=== PATIENT | female | born 1965 | race Caucasian/White ===

== ENCOUNTER → 2016-08-07 | Outpatient (CLI) | payer BC ==
[2016-08-08 14:22] LABS: HEMATOCRIT 40.4 % (37.0-47.0); HEMOGLOBIN 12.9 g/dL (12.0-16.0); MEAN CORPUSCULAR HEMOGLOBIN 25.7 PG (27-31); MEAN CORPUSCULAR HGB CONC 31.9 g/dL (33-37); MEAN CORPUSCULAR VOLUME 80.5 FL (81-99); MEAN PLATELET VOLUME 10.7 FL (7.4-12.2); RED BLOOD COUNT 5.02 10^6/uL (4.20-5.40)
[2016-08-08 14:45] LABS: BAND NEUTROPHILS % 3 % (0-10); LYMPHOCYTES % (MANUAL) 37 % (10-50); NEUTROPHILS % (MANUAL) 52 % (50-80)
[2016-08-08 14:46] LABS: BASOPHILS % (MANUAL) 3 % (0-1); EOSINOPHILS % (MANUAL) 2 % (0-8); MONOCYTES % (MANUAL) 3 % (0-12); PLATELET MORPHOLOGY COMMENT NORMAL MORPHOLOGY (NORM); RBC MORPHOLOGY COMMENT NORMAL MORPHOLOGY (NORM); WBC MORPHOLOGY COMMENT SEE COMMENTS (NORM)
[2016-08-08 15:04] LABS: FERRITIN 15.6 ng/mL (12.00-336.70)
== END ==
LOC: LAB 14:48
PROVIDERS: ATTEND Physician Assistant Medical
DX: I10 Essential (primary) hypertension (principal); R53.83 Other fatigue
CPT/HCPCS: 36415; 82728; 84443; 85007

== ENCOUNTER → 2016-08-19 | Outpatient (CLI) | payer BC ==
[2016-08-19 14:22] LABS: HEMOGLOBIN 13.5 g/dL (12.0-16.0)
[2016-08-19 14:27] LABS: BASOPHILS # (AUTO) 0.08 10*3/UL; BASOPHILS % (AUTO) 0.5 % (0-1); EOSINOPHILS # (AUTO) 0.17 10*3/UL; EOSINOPHILS % (AUTO) 1.1 % (0-8); HEMATOCRIT 42.3 % (37.0-47.0); LYMPHOCYTES # (AUTO) 5.04 10*3/uL; MEAN CORPUSCULAR HEMOGLOBIN 25.6 PG (27-31); MEAN CORPUSCULAR HGB CONC 31.9 g/dL (33-37); MEAN CORPUSCULAR VOLUME 80.3 FL (81-99); MONOCYTES # (AUTO) 0.99 10*3/UL (0.3-0.8); MONOCYTES % (AUTO) 6.1 % (5-15); NEUTROPHILS # (AUTO) 9.79 10*3/UL; NEUTROPHILS % (AUTO) 60.7 % (50-80); RED BLOOD COUNT 5.27 10^6/uL (4.20-5.40)
[2016-08-19 14:55] LABS: PLATELET MORPHOLOGY COMMENT NORMAL MORPHOLOGY (NORM); RBC MORPHOLOGY COMMENT NORMAL MORPHOLOGY (NORM); WBC MORPHOLOGY COMMENT NORMAL MORPHOLOGY (NORM)
== END ==
LOC: LAB 08:12
PROVIDERS: ATTEND Physician Assistant Medical
DX: D72.829 Elevated white blood cell count, unspecified (principal)
CPT/HCPCS: 85025

== ENCOUNTER → 2016-08-27 | Outpatient (CLI) | payer BC ==
[2016-08-27 14:40] LABS: BASOPHILS # (AUTO) 0.07 10*3/UL; BASOPHILS % (AUTO) 0.3 % (0-1); EOSINOPHILS # (AUTO) 0.07 10*3/UL; EOSINOPHILS % (AUTO) 0.3 % (0-8); HEMATOCRIT 43.1 % (37.0-47.0); HEMOGLOBIN 13.7 g/dL (12.0-16.0); LYMPHOCYTES # (AUTO) 4.48 10*3/uL; MEAN CORPUSCULAR HEMOGLOBIN 25.5 PG (27-31); MEAN CORPUSCULAR HGB CONC 31.8 g/dL (33-37); MEAN CORPUSCULAR VOLUME 80.3 FL (81-99); MEAN PLATELET VOLUME 10.9 FL (7.4-12.2); MONOCYTES # (AUTO) 1.43 10*3/UL (0.3-0.8); NEUTROPHILS # (AUTO) 14.29 10*3/UL; NEUTROPHILS % (AUTO) 70.1 % (50-80); RED BLOOD COUNT 5.37 10^6/uL (4.20-5.40)
[2016-08-27 14:42] LABS: PLATELET MORPHOLOGY COMMENT NORMAL MORPHOLOGY (NORM); RBC MORPHOLOGY COMMENT NORMAL MORPHOLOGY (NORM); WBC MORPHOLOGY COMMENT NORMAL MORPHOLOGY (NORM)
== END ==
LOC: LAB 09:09
PROVIDERS: ATTEND Physician Assistant Medical
DX: D72.829 Elevated white blood cell count, unspecified (principal)
CPT/HCPCS: 85025

== ENCOUNTER → 2016-09-25 | Outpatient (CLI) | payer BC ==
--- NOTE | 2016-09-25 12:19 | DI ---
CT ABD W/WO CN AND PELVIS W/W0,09/25/2016 8:36 AM: Clinical History: Left upper quadrant pain Previous Exam: February 06, 2007 Findings: Multiple helically acquired CT images are obtained through the abdomen and pelvis both before and aft er the administration of 75 cc of Isovue 300. The lung bases are clear. There is a 1 cm calcification within the hepatic dome. The appendix is normal. The gallbladder and liver is unremarkable. The spleen is also unremarkable. The pancreas is unremarkable. Postsurgical changes are seen consiste nt with gastric bypass. There is no evidence of small bowel obstruction. There are multiple prominent mesenteric lymph nodes, the majority of these were seen back in 2006. Skeletal structures are unremarkable. There is no hydronephrosis nor nephrolithiasis. Impression: 1. No acute intra-abdominal pathology. 2. Moderate stool throughout the colon. 3. Few mesenteric lymph nodes could represent some underlying acute gastroenteritis.
== END ==
LOC: CT 08:28
PROVIDERS: ATTEND Physician Assistant Medical
DX: R10.12 Left upper quadrant pain (principal); D72.829 Elevated white blood cell count, unspecified
CPT/HCPCS: 74178

== ENCOUNTER 2016-10-11 08:15 | Day surgery (SDC) | payer BC ==
[~2016-10-11 08:15] MED LIST: LIDOCAINE 2% VISCOUS(20 MG/1 ML) - 15 ML UD CUP PO ONE; LIDOCAINE HCL/PF 2% (20 MG/ML) - 5 ML SYRINGE ONE; LIDOCAINE W/ SODIUM BICARB 0.5 ML SYR ONE; Lactated Ringers 1,000 ML PRIMARY IV ONE; MIDAZOLAM 5 MG/1 ML ONE; fentaNYL Inj 100 MCG/2 ML VIAL ONE
--- NOTE | 2016-10-11 09:58 | GEN.OPNOTE ---
EGD Operative Note Surgery Date: 10/11/16 Preoperative Diagnosis: Epigastric abdominal pain Postoperative Diagnosis: Epigastric abdominal pain Procedure: Esophagogastroduodenoscopy Surgeon: Dre Chairez MD Anesthesia Provider: Brayden Zarate CRNA Anesthesia Type: MAC Indications: Patient's been having some of sharp abdominal pain located in the epigastric region Findings: Esophagus: Olympus video EGD scope inserted in the posterior pharynx. Under direct visualization guided into the esophagus. Esophagus was totally normal. No masses ulcers or tumors. GE Junction : 30-40 cm from incisors Fundus : Patient is small gastric pouch which was totally within normal limits Body : Prepyloric : Small Intestine : Was able to guide the scope along ways into the small intestine there is no ulcers seen. Saw the blind end of the small intestine lines that is attached to the gastric pouch again no evidence of problems. There was no marginal ulcers detected at the anastomotic site A lubricated flexible upper endoscope was inserted and passed through the esophagus and stomach into the duodenum.
[2016-10-11 11:00] VITALS: RESP 16
[2016-10-11 11:04] VITALS: TEMP 97.5
== END 2016-10-11 10:30 | disposition home or self-care (01) ==
LOC: SDSC 08:15
PROVIDERS: ATTEND Surgery
DX: R10.13 Epigastric pain (principal)
CPT/HCPCS: 43235; J2704; J3010; J2001; J2250; J7120

== ENCOUNTER 2017-01-02 12:55 | Emergency (ER) | payer BC ==
[2017-01-02] MEDS ORDERED: HEPARIN 5000 UNIT/1 ML IV ONE (13:04)
[2017-01-02] MEDS ORDERED: NORMAL SALINE 10 ML SYRINGE FLUSH IVP PRN (13:04)
[2017-01-02] MEDS ORDERED: Sodium Chloride 0.9% 1,000 ML PRIMARY IV ONE (13:04)
[2017-01-02 13:22] LABS: BASOPHILS # (AUTO) 0.11 10*3/UL; BASOPHILS % (AUTO) 0.7 % (0-1); EOSINOPHILS # (AUTO) 0.22 10*3/UL; EOSINOPHILS % (AUTO) 1.3 % (0-8); HEMATOCRIT 38.2 % (37.0-47.0); LYMPHOCYTES # (AUTO) 7.34 10*3/uL; MEAN CORPUSCULAR HEMOGLOBIN 23.7 PG (27-31); MEAN CORPUSCULAR HGB CONC 31.4 g/dL (33-37); MEAN CORPUSCULAR VOLUME 75.5 FL (81-99); MEAN PLATELET VOLUME 9.6 FL (7.4-12.2); MONOCYTES # (AUTO) 1.15 10*3/UL (0.3-0.8); MONOCYTES % (AUTO) 6.9 % (5-15); NEUTROPHILS % (AUTO) 45.5 % (50-80); RED BLOOD COUNT 5.06 10^6/uL (4.20-5.40)
[2017-01-02 13:25] LABS: PLATELET MORPHOLOGY COMMENT NORMAL MORPHOLOGY (NORM); RBC MORPHOLOGY COMMENT NORMAL MORPHOLOGY (NORM); WBC MORPHOLOGY COMMENT NORMAL MORPHOLOGY (NORM)
--- NOTE | 2017-01-02 13:31 | PDOC ---
Chest Pain HPI - General Chief Complaint: Chest Pain Stated Complaint: CHEST PAIN Date Seen by Provider: 01/02/17 Time Seen by Provider: 12:55 Source: Patient Exam Limitations: POSITIVE: No limitations Treatment Prior to Arrival: REPORTS: None Nurse's Notes Reviewed & Considered: Yes - History of Present Illness Initial Comments: The patient is a 51-year-old female who arrives to the emergency department by private vehicle with complaints of chest pain and fatigue. She states that approximately 2 weeks ago while at work sitting down she had onset of mid lower chest pain that radiated through to her left back and down the insides of both of her arms. She states that this severe pain was associated with cold sweats, shortness of breath and nausea. She states that she did have some associated emesis. She states that this severe pain lasted for just less than an hour and then improved. Since that time she has had intermittent chest pain although not quite as intense. She currently does not have any pain. She states that she has had no energy since this occurred 2 weeks ago. It is difficult for her to get up and move. She denies any pain or swelling in her legs. She does not have any known history of heart disease. She has treated for hypertension. She denies history of hyperlipidemia or diabetes. She does smoke approximately 1 pack per day. She states that her mom had her first heart attack at the age of 49 and has had triple bypass surgery. She has not had any previous EKG. She initially presented to the [facility] with these complaints. An EKG done there showed Q waves in the anterior leads with possible ST elevation in lead V3. She also has some T-wave inversions. There are no previous EKGs available for comparison. The [facility] and [facility] had recommended that she be evaluated in the emergency room by ambulance however the patient refused the ambulance and came by private vehicle. 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 - Patient Home Medications Home Medications: Home Medications Buspirone HCl 1 tab PO BID #60 tab 10/02/15 Aripiprazole [Abilify] 10 mg PO BID #60 tab 04/29/16 Lisinopril [ZESTRIL] 1 tab PO DAILY #90 tab 04/29/16 Fluticasone Propionate [Flonase Allergy Relief] 1 spr ANDRAE BID #3 spr 06/11/16 Lansoprazole [Prevacid] 30 mg PO DAILY #90 cap 10/01/16 Clonazepam 0.5 - 1 tab PO TID #90 tab 10/22/16 Venlafaxine HCl [Venlafaxine Hcl Er] 1 cap PO BID #60 cap 11/25/16 - Patient Allergies Allergies/Adverse Reactions: Allergies Allergy/AdvReac Type Severity Reaction Status Date / Time aspirin AdvReac Severe Anaphylaxis Verified 01/02/17 13:47 Past Medical History - heen HEENT History: Denies History, Dentures/Partials Cardiovascular History: Hypertension Respiratory History: Denies History Additional Gastrointestinal History: ABDOMINAL PAIN Genitourinary History: Denies History Endocrine History: Denies History Musculoskeletal History: Arthritis Prosthesis or Implant: No Neurological History: Denies History Blood Disorders: Denies History 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 Psychiatric History: Depression, Anxiety Disorders Additional Psychiatric History: HX OF SUICIDE ATTEMPT History of Sexually Transmitted Diseases: No Cancer History: Denies History History of MDRO: No History of Other Communicable Diseases: No Alcohol Use: Sober Substance Use Type: None Previous Surgical History: Yes Type / Date of Surgery: LEFT CTR/ GASTRIC BYPASS/ HYST/DENTAL Anesthesia Reactions: No Malignant Hyperthermia: No Significant Family History: Heart disease, COPD, Hypertension Past Medical History Reviewed: Reviewed - No Changes ROS - Limitations ROS Limitations: No Limitations Constitution: DENIES: Chills, Fever Cardiovascular: REPORTS: Chest Pain (No current pain), Blood Pressure Problem ( History of hypertension). DENIES: Heart Palpitations, Edema Respiratory: REPORTS: Shortness Of Breath. DENIES: Hurts To Breathe Neurological: REPORTS: Denies Neuro Symptoms Endocrine: REPORTS: Fatigue Musculoskeletal: DENIES: Calf Pain, Lower Extremity Swelling Genitourinary: REPORTS: Denies Symptoms Eyes: REPORTS: Denies Symptoms ENT: REPORTS: Denies Symptoms Skin: DENIES: Rash Chest Pain PE - General Appearance General Appearance: REPORTS: Alert, Cooperative, No Acute Distress - HEENT HEENT: POSITIVE: Head Inspection Nml, Eyes Inspection Nml, Ears Inspection Nml, Nose Inspection Nml, Pharynx Inspect. Nml - Neck Neck: DENIES: JVD Present - Respiratory Respiratory: REPORTS: No Respiratory Distress, Breath Sounds Normal - Cardiovascular Cardiovascular: REPORTS: Regular Rate and Rhythm, Heart Sounds Normal Peripheral Pulses: Dorsalis-pedis (R): 2+, Dorsalis-pedis (L): 2+ - Abdomen Abdomen: Soft: (All Quadrants), Denies Tenderness: (All Quadrants), No Distention: (All Quadrants) - Skin Skin: REPORTS: Intact, No Rash - Extremities Extremity: Normal ROM: (All Extremities), Normal Inspection: (All Extremities) - Neurological / Psychological Neurological: POSITIVE: Oriented X3, Motor Normal, Sensation Normal Chest Pain Progress - Results Reviewed by me Lab Results:: Laboratory Results 01/02/17 01/02/17 Range/Units 13:09 Unknown WBC 16.69 H (4.8-10.8) 10^3/uL RBC 5.06 (4.20-5.40) 10^6/uL Hgb 12.0 (12.0-16.0) g/dL Hct 38.2 (37.0-47.0) % MCV 75.5 L (81-99) FL MCH 23.7 L (27-31) PG MCHC 31.4 L (33-37) g/dL RDW Std Deviation 47.2 (39-50) fL RDW Coeff of Jerry 18.4 H (11.5-14.5) % Plt Count 531 H (140-350) 10*3/uL MPV 9.6 (7.4-12.2) FL Immature Gran % (Auto) 1.6 (0-5) % Neut % (Auto) 45.5 L (50-80) % Lymph % (Auto) 44.0 (10-50) % Calhoun % (Auto) 6.9 (5-15) % Eos % (Auto) 1.3 (0-8) % Baso % (Auto) 0.7 (0-1) % Immature Gran # (Auto) 0.27 10*3/UL Neut # (Auto) 7.60 10*3/UL Lymph # (Auto) 7.34 10*3/uL Calhoun # (Auto) 1.15 H (0.3-0.8) 10*3/UL Eos # (Auto) 0.22 10*3/UL Baso # (Auto) 0.11 10*3/UL WBC Morphology Comment Normal morphology (NORM) Plt Morphology Comment Normal morphology (NORM) RBC Morph Comment Normal morphology (NORM) PT 10.0 (9.7-11.4) secs INR 0.94 (0.00-5.90) N/A D-Dimer 0.98 H (0.00-0.59) mg/L Sodium 139 (135-145) meq/L Potassium 4.3 (3.8-5.2) meq/L Chloride 105 (98-112) meq/L Carbon Dioxide 28 (23-33) meq/L Anion Gap 6 (5-20) BUN 6 L (7-22) mg/dL Creatinine 0.7 (0.50-1.20) mg/dL Estimated GFR > 60 (>60 ml/min/1.73m(2)) BUN/Creatinine Ratio 8.57 (6-20) Glucose 96 (78-110) mg/dL Calculated Osmolality 285.0 (267-292) mOsm/kg Calcium 9.5 (8.7-10.7) mg/dL Magnesium 2.3 (1.6-2.4) mg/dL Total Bilirubin 0.4 (0.3-1.2) mg/dL AST 35 (8-39) IU/L ALT 55 H (9-52) IU/L Alkaline Phosphatase 112 (38-126) IU/L CK-MB (CK-2) 3.41 (0.00-5.00) NG/ML Troponin I 4.930 H* (< 0.040) ng/mL NT-Pro-B Natriuret Pep 2730 H (0-125) PG/ML Total Protein 6.9 (6.1-8.0) g/dL Albumin 3.8 (3.5-4.8) g/dL Globulin 3.1 (2.50-4.10) g/dL Albumin/Globulin Ratio 1.20 L (1.3-2.0) mg/g Amylase 55 (30-110) U/L Lipase 80 (23-300) IU/L EKG Interpreted/Reviewed By Me:: Yes EKG Interpretation:: POSITIVE: Normal Sinus Rhythm, Normal Rate, Other (Right bundle branch block with Q waves noted in the anterior leads) - Patient's Progress MDM / ED Course: The patient's EKG is concerning for recent UT. The patient has had anaphylactic reaction to aspirin in the past and therefore this was not given. She was started on a heparin drip per cardiac protocol as her symptoms are concerning for recent UT/unstable angina. She was mildly hypoxic on initial presentation with O2 sats in the upper 80s. She was placed on O2 per nasal cannula which brought her oxygen saturations into the mid 90s. Blood pressure is stable in the 120s over 80s and her pulses in the 80s. Her chest x-ray shows borderline cardiomegaly with some evidence of edema in the bases consistent with CHF. Her blood work reveals an elevated troponin of 4.9 as well as an elevated BNP of 2700. Clinical presentation is consistent with likely recent UT and associated CHF. The patient is discussed with Dr. Damon who is the superintendent electric power on-call at [facility] in [place]. He has agreed to accept the patient in transfer. These findings and recommendations were discussed with the patient and her . Arrangements will be made to transfer the patient to [place] via ambulance. - Consult Counseled: POSITIVE: Patient, Family, RE: Lab Results, RE: Radiology Results, RE : DX Patient Care Time - Estimated PCT Patient Care Time (In Minutes): 35 Vital Signs - VS Reviewed Vital Signs Reviewed: Yes (written documentation reviewed) Discharge Clinical Impression: Chest pain, Congestive heart failure, Elevated troponin level Discharge Disposition: Transferred to Tertiary Care Facility Condition: Serious Date Decision to Transfer to Another Facility: 01/02/17 Time Decision to Transfer to Another Facility: 14:15
[2017-01-02 13:37] LABS: BLOOD UREA NITROGEN 6 mg/dL (7-22); BUN/CREATININE RATIO 8.57 (6-20); CALCIUM 9.5 mg/dL (8.7-10.7); EST GLOMERULAR FILTRATION > 60 (>60 ml/min/1.73m(2)); MAGNESIUM 2.3 mg/dL (1.6-2.4); SERUM ALBUMIN 3.8 g/dL (3.5-4.8)
[2017-01-02 13:47] LABS: CREATINE KINASE MB 3.41 NG/ML (0.00-5.00)
[2017-01-02 13:53] LABS: LIPASE 80 IU/L (23-300)
[2017-01-02 14:09] LABS: TROPONIN I 4.93 ng/mL (< 0.040)
[2017-01-02 14:29] VITALS: RESP 16; TEMP 97.3
--- NOTE | 2017-01-02 14:50 | DI ---
History: Chest pain Comparison: None Findings: Cardiac silhouette within normal limits size. Pulmonary vasculature normal No infiltrate or effusion is demonstrated. Impression: Unremarkable single view chest
--- NOTE | 2017-01-02 16:02 | EKG ---
[address] [place] [address] Measurements Intervals [place] Rate: 88 P: 49 [place]: 154LEFT ATRI QRS: -54 QRSD: 136 T: 48 QT: 388 QTc: 434 Interpretive Statements SINUS RHYTHM WITH SINUS ARRHYTHMIA MARKED LEFT AXIS DEVIATION LEFT ATRIAL ENARGEMENT RIGHT BUNDLE BRANCH BLOCK ANTEROSEPTAL MYOCARDIAL INFARCTION], PROBABLY RECENT Compared to ECG 01/02/2017 11:01:22 Myocardial infarct finding still present Electronically Signed On 01-02-17 19:10:30 MDT by Wiley Meyer [id number]
== END 2017-01-02 14:55 | disposition short-term general hospital (02) ==
LOC: ER 12:55
DX: R07.9 Chest pain, unspecified (principal); I50.9 Heart failure, unspecified; R79.89 Other specified abnormal findings of blood chemistry; R53.83 Other fatigue; R06.02 Shortness of breath; R11.0 Nausea
CPT/HCPCS: 71010; 80053; 82150; 82553; 83690; 83735; 83880; 84484; 85025; 85379; 85610; 85730; 93005; 93010; 96365; 99285 ×2; J1644 ×2

== ENCOUNTER → 2017-01-02 | Outpatient (CLI) | payer BC ==
--- NOTE | 2017-01-02 11:53 | EKG ---
[facility] Measurements Intervals [place] Rate: 92 P: 48 SD: 155 QRS: -54 QRSD: 136 T: 2 QT: 374 QTc: 423 Interpretive Statements SINUS RHYTHM LEFT ATRIAL ENLARGEMENT [ LEFT AXIS DEVIATION [QRS AXIS < -30] RIGHT BUNDLE BRANCH BLOCK ANTEROSEPTAL MYOCARDIAL INFARCTION PROBABLY RECENT No previous ECG available for comparison Electronically Signed On 01-02-17 12:59:13 MDT by Wiley Meyer [id number]
== END ==
LOC: EKG 11:56
PROVIDERS: ATTEND Physician Assistant Medical
DX: R07.9 Chest pain, unspecified (principal); R06.02 Shortness of breath; I51.7 Cardiomegaly; I45.10 Unspecified right bundle-branch block; I25.2 Old myocardial infarction; Z72.0 Tobacco use
CPT/HCPCS: 93005; 93010

== ENCOUNTER → 2017-01-07 | Outpatient (CLI) | payer BC ==
[2017-01-07 14:58] LABS: BLOOD UREA NITROGEN 11 mg/dL (7-22); BUN/CREATININE RATIO 12.22 (6-20); CALCIUM 9.7 mg/dL (8.7-10.7); EST GLOMERULAR FILTRATION > 60 (>60 ml/min/1.73m(2))
== END ==
LOC: LAB 10:09
PROVIDERS: ATTEND Physician Assistant Medical
DX: I25.10 Atherosclerotic heart disease of native coronary artery without angina pectoris (principal); Z79.01 Long term (current) use of anticoagulants
CPT/HCPCS: 80048; 85610

== ENCOUNTER 2018-02-18 12:13 | Observation (INO) ==
--- NOTE | 2018-02-18 12:49 | EKG ---
[address] [address] Measurements Intervals [place] Rate: 76 P: 18 IA: 146 QRS: -36 QRSD: 125 T: 40 QT: 401 QTc: 432 Interpretive Statements ELECTRONIC VENTRICULAR PACEMAKER ABNORMAL RHYTHM ECG Compared to ECG 01/02/2017 13:03:07 Sinus rhythm no longer present Sinus arrhythmia no longer present Left-axis deviation no longer present Right bundle-branch block no longer present Electronically Signed On 02-19-18 13:47:22 MDT by Maximus Sandoval MD [id number]
--- NOTE | 2018-02-18 13:14 | DI ---
CT Head WO Contrast,02/18/2018 12:45 PM: Clinical History: Facial numbness and slurred speech. Previous Exam: None at this facility. Findings: Multiple helically acquired CT images are obtained through the brain without contrast, and demonstrat e normal, symmetric ventricles and other CSF containing spaces. There is no mass, hemorrhage nor midl ine shift. The surrounding soft tissue and osseous structures are unremarkable. The intraorbital stru ctures and paranasal sinuses are unremarkable. The parapharyngeal fat is normal and symmetric. Impression: Normal CT head.
--- NOTE | 2018-02-18 13:16 | DI ---
XR CXR 2VW PA/LAT,02/18/2018 12:46 PM: Clinical History: Weakness and fatigue. Previous Exam: None at this facility. Findings: PA and lateral views of the chest are obtained, and demonstrate clear lungs. The cardiomediastinum an d bony thorax are unremarkable. A pacemaker is noted in good position. There is no infiltrate nor effusion. Impression: No acute cardiopulmonary disease.
[2018-02-18 13:38] LABS: BLOOD UREA NITROGEN 10 mg/dL (7-22); BUN/CREATININE RATIO 16.66 (6-20); SERUM ALBUMIN 4.2 g/dL (3.5-4.8)
[2018-02-18 13:46] LABS: BASOPHILS # (AUTO) 0.04 10*3/UL; BASOPHILS % (AUTO) 0.2 % (0-1); EOSINOPHILS # (AUTO) 0.14 10*3/UL; EOSINOPHILS % (AUTO) 0.9 % (0-8); Hematocrit [HCT] 32.1 % (37.0-47.0); Hemoglobin [HGB] 9.7 g/dL (12.0-16.0); LYMPHOCYTES # (AUTO) 4.18 10*3/uL; MEAN CORPUSCULAR HEMOGLOBIN 20.6 PG (27-31); MEAN CORPUSCULAR HGB CONC 30.2 g/dL (33-37); MEAN CORPUSCULAR VOLUME 68.3 FL (81-99); MONOCYTES # (AUTO) 1.02 10*3/UL (0.3-0.8); MONOCYTES % (AUTO) 6.2 % (5-15); NEUTROPHILS # (AUTO) 10.95 10*3/UL; NEUTROPHILS % (AUTO) 66.8 % (50-80)
[2018-02-18 13:53] LABS: PLATELET MORPHOLOGY COMMENT NORMAL MORPHOLOGY (NORM); RBC MORPHOLOGY COMMENT SEE COMMENTS (NORM); WBC MORPHOLOGY COMMENT NORMAL MORPHOLOGY (NORM)
[2018-02-18] MEDS ORDERED: Sodium Chloride 0.9% 1,000 ML PRIMARY IV ONE (13:59)
--- NOTE | 2018-02-18 14:13 | PDOC ---
General Adult HPI - General Chief Complaint: Dyspnea Stated Complaint: headache and weakness Date Seen by Provider: 02/18/18 Time Seen by Provider: 13:00 - History of Present Illness Initial Comment: This is a very nice 52-year-old woman who presents to the emergency department with complaints of headache is been going on and off for couple of weeks but that she thinks is getting worse as well as feeling weak and wiped out. She denies any specific neurologic sort of issues or complaints just that in general she feels fatigued and weak and wiped out. She denies nausea or vomiting or fever or chills or cough or shortness of breath. She states she's been taking her medications as they are prescribed. She states that she has a history of coronary artery disease including NC about a year ago but that that is all stable for her. She also feels like she has low blood pressure at times but is unsure what her blood pressure is today or what it is been recently. Have you received a tetanus shot in the past 10 years?: Unknown - Patient Home Medications Home Medications: Home Medications atorvastatin 40 mg tablet 40 mg PO QDAY #90 tab 01/31/17 carvedilol 3.125 mg tablet 3.125 mg PO BID #180 tab 01/31/17 clopidogrel 75 mg tablet 75 mg PO QDAY #90 tab 01/31/17 furosemide 20 mg tablet 20 mg PO QDAY #90 tab 01/31/17 pantoprazole 40 mg tablet,delayed release 40 mg PO QAM #90 tab 01/31/17 citalopram 20 mg tablet 20 mg PO QDAY #90 tab 05/20/17 aripiprazole 10 mg tablet 10 mg PO QHS #30 tab 10/09/17 spironolactone 25 mg tablet 12.5 mg PO BID #90 tab 10/09/17 warfarin 5 mg tablet 2.5 mg PO .once weekly #100 tab 10/09/17 warfarin 5 mg tablet 5 mg PO 6XW #100 tab 10/09/17 clonazepam 1 mg tablet 1 mg PO TID #30 tab 10/23/17 lisinopril 20 mg tablet 20 mg PO QDAY #90 tab 12/23/17 venlafaxine ER 150 mg capsule,extended release 24 hr 150 mg PO QDAY #90 cap 11/03 - Patient Allergies Allergies/Adverse Reactions: Allergies 3 Allergy/AdvReac Type Severity Reaction Status Date / Time aspirin AdvReac Severe Anaphylaxis Verified 02/18/18 13:33 Past Medical History - heen HEENT History: Denies History, Dentures/Partials Cardiovascular History: Hypertension Respiratory History: Denies History Additional Gastrointestinal History: ABDOMINAL PAIN Genitourinary History: Denies History Endocrine History: Denies History Musculoskeletal History: Arthritis Prosthesis or Implant: No Neurological History: Denies History Blood Disorders: Denies History 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 GLASSES Psychiatric History: Depression, Anxiety Disorders Additional Psychiatric History: HX OF SUICIDE ATTEMPT History of Sexually Transmitted Diseases: No Cancer History: Denies History History of MDRO: No History of Other Communicable Diseases: No Alcohol Use: Sober In the Past 12 Months, Have Used or Abuse Any Substance: None Previous Surgical History: Yes Type / Date of Surgery: LEFT CTR/ GASTRIC BYPASS/ HYST/DENTAL Anesthesia Reactions: No Malignant Hyperthermia: No Significant Family History: Heart disease, COPD, Hypertension Past Medical History Reviewed: Reviewed - No Changes ROS - Limitations ROS Limitations: No Limitations Constitution: REPORTS: Weakness Cardiovascular: REPORTS: Denies Cardiac Symptoms Respiratory: REPORTS: Denies Resp Symptoms General Adult Exam - General Appearance General Appearance: POSITIVE: Alert, Cooperative, No Acute Distress - HEENT HEENT: POSITIVE: Head Inspection Nml, Eyes Inspection Nml - Neck Neck: POSITIVE: Normal Inspection - Respiratory Respiratory: POSITIVE: No Respiratory Distress, Breath Sounds Normal - Cardiovascular Cardiovascular: POSITIVE: Regular Rate & Rhythm - Abdomen Abdomen: Soft: (All Quadrants), Normal Bowel Sounds: (All Quadrants), Denies Tenderness: (All Quadrants) - Back Back: POSITIVE: Normal Inspection - Skin Skin: POSITIVE: Normal Color, Warm, Dry - Extremities Extremity: Non-Tender: (All Extremities), Normal ROM: (All Extremities), Normal Inspection: (All Extremities) - Neurological / Psychological Neurological: POSITIVE: 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 CT angios the chest was performed and shows some diffuse interstitial edema and cardiomegaly and findings consistent with CHF. Lab Results:: Laboratory Results 3 02/18/18 02/18/18 02/18/18 12:46 13:24 13:24 WBC 16.40 H RBC 4.70 Hgb 9.7 L Hct 32.1 L MCV 68.3 L MCH 20.6 L MCHC 30.2 L RDW Std Deviation 43.5 RDW Coeff of Jerry 18.1 H Plt Count 442 H MPV 9.0 Immature Gran % (Auto) 0.4 Neut % (Auto) 66.8 Lymph % (Auto) 25.5 Will % (Auto) 6.2 Eos % (Auto) 0.9 Baso % (Auto) 0.2 Immature Gran # (Auto) 0.07 Neut # (Auto) 10.95 Lymph # (Auto) 4.18 Will # (Auto) 1.02 H Eos # (Auto) 0.14 Baso # (Auto) 0.04 WBC Morphology Comment Normal morphology Plt Morphology Comment Normal morphology RBC Morph Comment See comments Sodium 140 Potassium 4.2 Chloride 107 Carbon Dioxide 27 Anion Gap 6 BUN 10 Creatinine 0.6 Estimated GFR > 60 BUN/Creatinine Ratio 16.66 Glucose 89 Calculated Osmolality 287.0 Lactic Acid Calcium 8.8 Total Bilirubin 0.3 AST 21 ALT 27 Alkaline Phosphatase 95 NT-Pro-B Natriuret Pep 392 H Total Protein 7.3 Albumin 4.2 Globulin 3.2 Albumin/Globulin Ratio 1.30 Ur Collection Type Urine Color Urine Clarity Urine pH Ur Specific [place] U Specif Grav (Refrac) Urine Protein Urine Glucose (UA) Urine Ketones Urine Occult Blood Urine Nitrate Urine Bilirubin Urine Urobilinogen Ur Leukocyte Esterase Urine RBC Urine WBC Ur Squamous Epith Cells Ur Renal Epithelial Cell Urine Crystals Urine Bacteria Urine Casts Urine Mucus Urine Trichomonas Urine Yeast Ur Culture Indicated? Urine Opiates Screen Ur Buprenorphine Ur Oxycodone Screen Urine Methadone Screen Ur Propoxyphene Screen Barbiturate Screen U Tricyclic Antidepress Phencyclidine Screen Amphetamines Screen U Methamphetamines Scrn Benzodiazepines Screen Cocaine Screen U Marijuana (THC) Screen 3 02/18/18 02/18/18 13:56 15:16 WBC RBC Hgb Hct MCV MCH MCHC RDW Std Deviation RDW Coeff of Jerry Plt Count MPV Immature Gran % (Auto) Neut % (Auto) Lymph % (Auto) Will % (Auto) Eos % (Auto) Baso % (Auto) Immature Gran # (Auto) Neut # (Auto) Lymph # (Auto) Will # (Auto) Eos # (Auto) Baso # (Auto) WBC Morphology Comment Plt Morphology Comment RBC Morph Comment Sodium Potassium Chloride Carbon Dioxide Anion Gap BUN Creatinine Estimated GFR BUN/Creatinine Ratio Glucose Calculated Osmolality Lactic Acid 1.0 Calcium Total Bilirubin AST ALT Alkaline Phosphatase NT-Pro-B Natriuret Pep Total Protein Albumin Globulin Albumin/Globulin Ratio Ur Collection Type Clean catch urine Urine Color Yellow Urine Clarity Clear Urine pH 6.5 Ur Specific [place] 1.010 U Specif Grav (Refrac) 1.010 Urine Protein Negative Urine Glucose (UA) Negative Urine Ketones Negative Urine Occult Blood Negative Urine Nitrate Negative Urine Bilirubin Negative Urine Urobilinogen 0.2 Ur Leukocyte Esterase Trace Urine RBC None Urine WBC 0-2 Ur Squamous Epith Cells Moderate Ur Renal Epithelial Cell None Urine Crystals None Urine Bacteria Rare Urine Casts None Urine Mucus None Urine Trichomonas None Urine Yeast None Ur Culture Indicated? Culture not set Urine Opiates Screen Negative Ur Buprenorphine Negative Ur Oxycodone Screen Negative Urine Methadone Screen Negative Ur Propoxyphene Screen Negative Barbiturate Screen Negative U Tricyclic Antidepress Negative Phencyclidine Screen Negative Amphetamines Screen Negative U Methamphetamines Scrn Negative Benzodiazepines Screen Negative Cocaine Screen Negative U Marijuana (THC) Screen Negative CBC and BMP: 02/18/18 13:24 02/18/18 13:24 - Patient's Progress MDM / ED Course: This woman came in with complaints of headache and was found to have hypoxia with any sort of exertion and hypoxia at rest. Ultimately lab work showed an elevated white blood cell count a elevated B and P and signs and symptoms consistent with some congestive heart failure. A workup for possible infection did not show anything on a urinalysis or CT scanning of her chest or anywhere on exam. Blood cultures were taken and are pending. No antibiotics have been given. Ultimately this woman has a few issues need aggressive attention. First of all she has new onset congestive heart failure with elevated BNP and CT evidence of pulmonary edema. She is given a 40 mg IV Lasix dose and really monitored closely. I've discussed her case with the hospitalist who is going to admit her to the hospital. She also has weakness and lethargy and headache. Once she had her oxygen level brought to the mid 80s though her headache went away. She denies any nausea vomiting or abdominal complaints symptoms at this time. Patient Care Time - Estimated PCT Patient Care Time (In Minutes): 50 Vital Signs - Recent Vital Signs Vital Signs: Vital Signs (Last 8 hours) Temp Pulse Pulse Resp BP Pulse Ox 02/18/18 15:31 97.8 F 88 88 16 127/63 89 - VS Reviewed Vital Signs Reviewed: Yes Discharge Clinical Impression: New onset of congestive heart failure, Headache Acute respiratory failure Qualifiers: Respiratory failure complication: hypoxia Qualified Code(s): J96.01 - Acute respiratory failure with hypoxia Discharge Disposition: Admit to Inpatient Condition: Fair Follow Up With: JAMES AG [Primary Care Provider] - Date Decision to Admit to Inpatient: 02/18/18 Time Decision to Admit to Inpatient: 19:00
[2018-02-18 15:21] LABS: BILIRUBIN,URINE NEGATIVE (NEG); CLARITY,URINE CLEAR (CLEAR); COLOR,URINE YELLOW (Y); GLUCOSE, URINE (UA) NEGATIVE (NEG); OCCULT BLOOD,URINE NEGATIVE (NEG); PH,URINE 6.5 (5.0-8.5); PROTEIN,URINE NEGATIVE (NEG); UROBILINOGEN,URINE 0.2 EU/dL (0.2)
[2018-02-18 15:38] LABS: AMPHETAMINE SCREEN NEGATIVE (NEG); BACTERIA,URINE RARE; CANNABINOID SCREEN,URINE NEGATIVE (NEG); COCAINE SCREEN NEGATIVE (NEG); METHADONE URINE SCREEN NEGATIVE (NEG); METHAMPHETAMINES SCREEN,URINE NEGATIVE (NEG); OPIATE SCREEN,URINE NEGATIVE (NEG); SQUAMOUS EPITHELIAL CELL,UR MODERATE; URINE SAMPLE TYPE CLEAN CATCH URINE; WBC,URINE 0-2
--- NOTE | 2018-02-18 18:08 | DI ---
CT CTA Chest Non-Coronary WWO,02/18/2018 4:50 PM: Clinical History: Hypoxemia. Previous Exam: None at this facility. Findings: Multiple helically acquired CT images are obtained through the chest following intravenous administra tion of 69 cc of Isovue 370, and demonstrates increased interstitial markings throughout and subsegme ntal atelectasis. There is mild cardiomegaly and a few coronary artery calcifications are seen. There is no filling defect or truncation of the pulmonary arteries to suggest pulmonary embolism. Mild diffuse degenerative changes of the spine are seen. A pacemaker is in good position. Impression: 1. No evidence of pulmonary embolism. 2. Increased interstitial markings consistent with mild edema. 3. Cardiomegaly. The above-mentioned edema most likely represents congestive heart failure.
[2018-02-18] MEDS ORDERED: FUROSEMIDE 10 MG/1 ML - 4 ML IVP ONE (19:02)
--- NOTE | 2018-02-18 20:05 | PDOC ---
HPI - History of Present Illness Date of Service: 02/18/18 Time of Service: 21:00 Chief Complaint: Headache, shortness of breath and cough of 2 weeks duration History of Present Illness: This is a 52 years old female with medical history significant for history of coronary artery disease with previous stents, history of previous pacemaker and defibrillator insertion last year, history of hypertension, she said the front wall of the heart is a scarred as a results of the IA that she had last year, history of depression and A. fib on warfarin who presented to the hospital with history of headaches frontal been going on for about 2 weeks variable in intensity and frequency, she did report also shortness of breath with exertion, PNDs and orthopnea. She doesn't think that she has swelling in her legs. But she did report weight gain of about 5 pounds. She did say that she sees a nurse orthopaedic and she had 2 weeks ago an echocardiogram however she does not have the results. She was supposed to see the nurse orthopaedic today but because of her symptoms she presented to the ER. Down in the ER she was found to be hypoxic with exertion she had a CT of the chest which raised the possibility of interstitial edema secondary to CHF. She was given a dosage of IV Lasix and was admitted. She did say that once she was put on oxygen her symptoms improved including the headache that brought her here. She is denying chest pain. Past Medical History Medical History: 1. Coronary artery disease with previous IA needed 2 stents last year. 2. History of hypertension. 3. Depression. 4. Status post pacemaker/defibrillator insertion last year. 5. History of A. fib Surgical History: 1. History of gastric bypass before. 2. History of hysterectomy Pertinent Family History: Father from coronary artery disease at age 53 Past Social History: She currently smokes a pack a day, does not drink no drugs. Tobacco Use: Current Every Day Smoker In the Past 12 Months, Have Used or Abuse Any of the Following Substance: None Alcohol Use: None Medication / Allergies Home Medications: Home Medications 3 Medication Instructions Recorded Confirmed Type atorvastatin 40 mg tablet 40 mg PO QDAY #90 tab 01/31/17 02/18/18 Rx carvedilol 3.125 mg tablet 3.125 mg PO BID #180 tab 01/31/17 02/18/18 Rx clopidogrel 75 mg tablet 75 mg PO QDAY #90 tab 01/31/17 02/18/18 Rx furosemide 20 mg tablet 20 mg PO QDAY #90 tab 01/31/17 02/18/18 Rx pantoprazole 40 mg tablet,delayed 40 mg PO QAM #90 tab 01/31/17 02/18/18 Rx release citalopram 20 mg tablet 20 mg PO QDAY #90 tab 05/20/17 02/18/18 Rx aripiprazole 10 mg tablet 10 mg PO QHS #30 tab 10/09/17 02/18/18 Rx spironolactone 25 mg tablet 12.5 mg PO BID #90 tab 10/09/17 02/18/18 Rx warfarin 5 mg tablet 2.5 mg PO .once weekly #100 tab 10/09/17 02/18/18 Rx warfarin 5 mg tablet 5 mg PO 6XW #100 tab 10/09/17 02/18/18 Rx clonazepam 1 mg tablet 1 mg PO TID #30 tab 10/23/17 02/18/18 Rx lisinopril 20 mg tablet 20 mg PO QDAY #90 tab 12/23/17 02/18/18 Rx venlafaxine ER 150 mg 150 mg PO QDAY #90 cap 01/22/18 02/18/18 Rx capsule,extended release 24 hr Allergies/Adverse Reactions: Allergies 3 Allergy/AdvReac Type Severity Reaction Status Date / Time aspirin AdvReac Severe Anaphylaxis Verified 02/18/18 20:06 Review of Systems - Review of Systems All Systems: Reviewed & No Additional Complaints Except as Stated Exam - Vitals Vital Signs: Vital Signs Temperature 97.8 F Temperature Source Temporal Artery Scan Pulse Rate [Pulse Oximeter 88 Bilateral Radial] Pulse Rate 88 Respiratory Rate 16 Blood Pressure [Left Arm] 127/63 Pulse Ox 89 Oxygen Delivery Method Room Air Height 5 ft 3 in Weight 185 lb - General General Appearance: No Acute Distress, Cooperative - Head Head Exam: Normal Inspection - Eye Eye Exam: POSITIVE: Normal Appearance - ENT ENT Exam: POSITIVE: Normal Exam - Neck Neck Exam: JVP is Raised - Respiratory Respiratory Exam: POSITIVE: Clear to Auscultation - Bilaterally - Cardiovascular Cardiovascular Exam: POSITIVE: RRR - GI/Abdominal GI/Abdominal Exam: POSITIVE: Normal Bowel Sounds, Non Tender, Non Distended, Soft, No Organomegaly - Rectal Rectal Exam: POSITIVE: Deferred - External Exam: POSITIVE: Deferred - Extremities Additional Extremities Exam Details: Trace edema in the legs - Back Back Exam: POSITIVE: Normal Inspection - Neurological Neurological Exam: POSITIVE: Alert, Oriented x 3, CN II-XII Intact, No Facial Droop, Speech Intact / Clear, Moves All Extremities Equally - Psychiatric Psychiatric Exam: POSITIVE: Flat Affect Results - Labs CBC and BMP: 02/18/18 13:24 02/18/18 13:24 - EKG Data -: EKG Interpreted by Me (Showed paced ventricular rhythm) - Imaging Status: Report Reviewed by Me (Ct chest . No evidence of pulmonary embolism. 2. Increased interstitial markings consistent with mild edema. 3. Cardiomegaly. The above-mentioned edema most likely represents congestive heart failure. Chest X ray No acute cardiopulmonary disease. CT head Normal CT head.) Assessment and Plan - Patient Problems (1) Shortness of breath Current Visit: Yes Status: Acute Comment: Probably secondary to CHF, she was giving Lasix IV in the ER I think we 'll continue with Lasix IV in the morning. Continue with beta giovanna, CHAYITO inhibitor and Aldactone. She did say that she had an echocardiogram done 2 weeks ago we'll try to get the records from the cardiology in [place]. We may discuss with them her presentation. Code(s): R06.02 - Shortness of breath (2) Essential hypertension Current Visit: No Status: Chronic Comment: Continue same medications Code(s): I10 - Essential (primary) hypertension (3) Leukocytosis Current Visit: No Status: Chronic Comment: I can See that she had an elevated white count from before. Blood culture was sent I think we'll hold off on antibiotics for now. Code(s): D72.829 - Elevated white blood cell count, unspecified (4) Anemia Current Visit: Yes Status: Acute Comment: This looks like microcytic anemia will send for ferritin and iron studies. She may need to be on iron replacement with her history of gastric bypass. Will see what's her HB level tomorrow. Will send for guaiac stool. Code(s): D64.9 - Anemia, unspecified (5) Depression Current Visit: No Status: Chronic Comment: Continue with previous medications Code(s): F32.9 - Major depressive disorder, single episode, unspecified
[2018-02-18] MEDS ORDERED: LIDOCAINE W/ SODIUM BICARB 0.5 ML SYR SUBD PRN (20:59)
[2018-02-18] MEDS: ATORVASTATIN 40 MG TABLET PO SCH (21:40)
[2018-02-18] MEDS: ClonazePAM Tab 1 MG TABLET PO SCH (21:41)
[2018-02-18] MEDS: Warfarin 5 MG TAB PO SCH (21:41)
[2018-02-18] MEDS: CLOPIDOGREL 75 MG TABLET PO SCH (21:41)
[2018-02-18] MEDS: ARIPIPRAZOLE 10 MG PO SCH (22:21)
[2018-02-19] MEDS ORDERED: GUAIFENESIN/DM 5 ML UD CUP PO PRN (01:19)
[2018-02-19 05:33] LABS: Hematocrit [HCT] 31.4 % (37.0-47.0); Hemoglobin [HGB] 9.2 g/dL (12.0-16.0); MEAN CORPUSCULAR HEMOGLOBIN 20.2 PG (27-31); MEAN CORPUSCULAR HGB CONC 29.3 g/dL (33-37); RED BLOOD COUNT 4.55 10^6/uL (4.20-5.40)
[2018-02-19 05:51] LABS: BLOOD UREA NITROGEN 9 mg/dL (7-22)
[2018-02-19 06:43] LABS: VENOUS PH 7.43 (7.32-7.42)
[2018-02-19 06:48] LABS: BAND NEUTROPHILS % 0 % (0-10); BASOPHILS % (MANUAL) 1 % (0-1); EOSINOPHILS % (MANUAL) 0 % (0-8); MONOCYTES % (MANUAL) 7 % (0-12); NEUTROPHILS % (MANUAL) 62 % (50-80); PLATELET MORPHOLOGY COMMENT NORMAL MORPHOLOGY (NORM); RBC MORPHOLOGY COMMENT NORMAL MORPHOLOGY (NORM); WBC MORPHOLOGY COMMENT NORMAL MORPHOLOGY (NORM)
[2018-02-19] MEDS ORDERED: FUROSEMIDE 10 MG/1 ML - 4 ML IVP SCH (07:00)
--- NOTE | 2018-02-19 07:03 | DI ---
XR CXR 1VW,02/19/2018 6:28 AM: Clinical History: Increased oxygen demands. Previous Exam: None at this facility. Findings: A single frontal radiograph of the chest is obtained, and demonstrate clear lungs. The cardiomediasti num and bony thorax are unremarkable. Overlying EKG leads are seen. There is some mild increased perihilar markings. There is a pacemaker noted in good position. Impression: Mildly increased perihilar markings may represent early congestive heart failure. Correlate clinicall y.
[2018-02-19] MEDS: PANTOPRAZOLE 40 MG TABLET PO SCH (08:14)
[2018-02-19] MEDS ORDERED: CLOPIDOGREL 75 MG TABLET PO SCH (09:00)
[2018-02-19] MEDS ORDERED: Influenza 18-19 Vaccine (6mo+) 60 MCG/0.5 ML SYRINGE IM ONE (09:00)
[2018-02-19] MEDS: VENLAFAXINE XR 75 MG CAP PO SCH (09:33)
[2018-02-19] MEDS: METOPROLOL SUCCINATE 25 MG SR 24H TABLET PO SCH (09:36)
[2018-02-19] MEDS: ClonazePAM Tab 1 MG TABLET PO SCH ×3 (09:36→20:20)
[2018-02-19] MEDS: Spironolactone Tab 25 MG TAB PO SCH ×2 (09:39→20:20)
[2018-02-19] MEDS: CITALOPRAM 20 MG TABLET PO SCH (09:39)
[2018-02-19] MEDS: LISINOPRIL 20 MG TABLET PO SCH (11:36)
--- NOTE | 2018-02-19 13:58 | PDOC(PROG) ---
Interval History: Feels much better had 24 out no chest pain nausea vomiting she has been walking to the bathroom without shortness of breath Objective : Data - Labs CBC and BMP: 02/19/18 04:50 02/19/18 04:50 Objective : Exam - General General Appearance: Cooperative - Respiratory Respiratory Exam: Clear to Auscultation - Bilaterally, Breathing Non Labored, Normal To Percussion, Normal to Percussion and Palpation - Cardiovascular Cardiovascular Exam: RRR, No Murmur, No Clicks, No Gallops, No Rubs, PMI Non- Displaced - GI/Abdominal GI/Abdominal Exam: Normal Bowel Sounds, Non Tender, Non Distended, Soft, No Masses, No Hepatomegaly, No Splenomegaly, No Organomegaly - Extremities Extremities Exam: No Clubbing Present, No Edema Present, No Cyanosis Present Assessment and Plan - Patient Problems (1) CHF (congestive heart failure) Current Visit: No Status: Acute Comment: Congestive heart failure exacerbation I spoke to Dr. Camarena echo that he just is done is improved to about 45% compared to the older one of 35% we will continue to diurese patient has been walking around the hallways most likely discharged tomorrow Code(s): I50.9 - Heart failure, unspecified Qualifiers: Qualified Code(s): I50.41 - Acute combined systolic (congestive) and diastolic (congestive) heart failure (2) Essential hypertension Current Visit: No Status: Chronic Comment: Stable Code(s): I10 - Essential (primary) hypertension (3) Depression Current Visit: No Status: Chronic Code(s): F32.9 - Major depressive disorder , single episode, unspecified (4) Shortness of breath Current Visit: Yes Status: Acute Code(s): R06.02 - Shortness of breath (5) Anemia Current Visit: Yes Status: Acute Code(s): D64.9 - Anemia, unspecified
[2018-02-19] MEDS ORDERED: FUROSEMIDE 10 MG/1 ML - 4 ML IVP ONE (14:47)
[2018-02-19] MEDS: FUROSEMIDE 10 MG/1 ML - 4 ML IVP SCH (15:09)
[2018-02-19] MEDS: Warfarin 5 MG TAB PO SCH (20:20)
[2018-02-19] MEDS: ATORVASTATIN 40 MG TABLET PO SCH (20:20)
[2018-02-19] MEDS: CLOPIDOGREL 75 MG TABLET PO SCH (20:20)
[2018-02-19] MEDS: ARIPIPRAZOLE 10 MG PO SCH (20:52)
[2018-02-20 05:40] LABS: Hematocrit [HCT] 32.9 % (37.0-47.0); Hemoglobin [HGB] 9.9 g/dL (12.0-16.0); MEAN CORPUSCULAR HEMOGLOBIN 20.8 PG (27-31); MEAN CORPUSCULAR HGB CONC 30.1 g/dL (33-37); MEAN PLATELET VOLUME 9.3 FL (7.4-12.2); RED BLOOD COUNT 4.77 10^6/uL (4.20-5.40)
[2018-02-20 05:51] LABS: BLOOD UREA NITROGEN 12 mg/dL (7-22); SERUM ALBUMIN 4.1 g/dL (3.5-4.8)
[2018-02-20] MEDS: FUROSEMIDE 10 MG/1 ML - 4 ML IVP SCH ×2 (07:38→13:20)
[2018-02-20] MEDS: PANTOPRAZOLE 40 MG TABLET PO SCH (07:38)
[2018-02-20] MEDS ORDERED: Influenza 18-19 Vaccine (6mo+) 60 MCG/0.5 ML SYRINGE IM ONE (08:00)
[2018-02-20] MEDS ORDERED: CYANOCOBALAMIN (VITAMIN B-12) 1,000 MCG TABLET.ER PO SCH (09:30)
[2018-02-20] MEDS ORDERED: FOLIC ACID 1 MG TABLET PO SCH (09:30)
[2018-02-20] MEDS ORDERED: FERROUS GLUCONATE 324 MG TABLET PO SCH (09:30)
[2018-02-20] MEDS: VENLAFAXINE XR 75 MG CAP PO SCH (09:54)
[2018-02-20] MEDS: ClonazePAM Tab 1 MG TABLET PO SCH (09:55)
[2018-02-20] MEDS: LISINOPRIL 20 MG TABLET PO SCH (09:55)
[2018-02-20] MEDS: Spironolactone Tab 25 MG TAB PO SCH (09:55)
[2018-02-20] MEDS: CITALOPRAM 20 MG TABLET PO SCH (09:55)
[2018-02-20] MEDS: METOPROLOL SUCCINATE 25 MG SR 24H TABLET PO SCH (09:55)
[2018-02-20 10:22] VITALS: TEMP 97.8
--- NOTE | 2018-02-20 12:48 | DCSUMMARY ---
Hospitalization Summary Hospital Course: Final Discharge Diagnosis: Current Visit Problems Problem Status Onset Code New onset of congestive heart failure Acute I50.9 Acute respiratory failure Acute J96.00 Headache Acute R51 Shortness of breath Acute R06.02 Anemia Acute D64.9 Diagnostic Data, Laboratory Data, and Procedures of Signifigance: Laboratory Results 02/20/18 02/20/18 Range/Units 04:40 04:40 WBC 12.46 H (4.8-10.8) 10^3/uL RBC 4.77 (4.20-5.40) 10^6/uL Hgb 9.9 L (12.0-16.0) g/dL Hct 32.9 L (37.0-47.0) % MCV 69.0 L (81-99) FL MCH 20.8 L (27-31) PG MCHC 30.1 L (33-37) g/dL RDW Std Deviation 43.1 (39-50) fL RDW Coeff of Jerry 17.7 H (11.5-14.5) % Plt Count 411 H (140-350) 10*3/uL MPV 9.3 (7.4-12.2) FL Sodium 136 (135-145) meq/L Potassium 3.9 (3.8-5.2) meq/L Chloride 98 (98-112) meq/L Carbon Dioxide 31 (23-33) meq/L Anion Gap 7 (5-20) BUN 12 (7-22) mg/dL Creatinine 0.6 (0.50-1.20) mg/dL Estimated GFR > 60 (>60 ml/min/1.73m(2)) BUN/Creatinine Ratio 20.00 (6-20) Glucose 95 (78-110) mg/dL Calculated Osmolality 281.0 (267-292) mOsm/kg Calcium 8.9 (8.7-10.7) mg/dL Magnesium 2.2 (1.6-2.4) mg/dL Total Bilirubin 0.6 D (0.3-1.2) mg/dL AST 58 H (8-39) IU/L ALT 24 (9-52) IU/L Alkaline Phosphatase 93 (38-126) IU/L Total Protein 7.3 (6.1-8.0) g/dL Albumin 4.1 (3.5-4.8) g/dL Globulin 3.2 (2.50-4.10) g/dL Albumin/Globulin Ratio 1.20 L (1.3-2.0) mg/g History and Physical pertinent to Admission: Past Medical History Medical History: 1. Coronary artery disease with previous NC needed 2 stents last year. 2. History of hypertension. 3. Depression. 4. Status post pacemaker/defibrillator insertion last year. 5. History of A. fib Surgical History: 1. History of gastric bypass before. 2. History of hysterectomy Pertinent Family History: Father from coronary artery disease at age 53 Past Social History: She currently smokes a pack a day, does not drink no drugs. Tobacco Use: Current Every Day Smoker In the Past 12 Months, Have Used or Abuse Any of the Following Substance: None Alcohol Use: None Course of Hospitalization: This is a very nice 52-year-old female with past medical history significant for coronary artery disease with previous stents, history of pacemaker and defibrillator insertion last year, depression and A. fib on Coumadin. Presents to the ER with shortness of breath and hypoxia and her swelling in the legs and increased weight gain of about 5 [address] she did see Dr[address] Camarena 2 weeks prior which repeated an echo which showed that her congestive heart failure ejection fraction was actually improved I also spoke to him on the phone to 45-50% range admitted with the diagnosis of exacerbation of congestive heart failure. In the hospital she was diuresed aggressively with IV Lasix 40 twice a day and the output was about 6 L. Patient has been doing great and walking through the hallways and no shortness of breath and feels her normal self. She did have a complaint of headaches in the ER and this has not been the case in the hospital. Most likely I would suspect the patient has a sleep apnea I recommended she go for a sleep study and most likely will need that S CPAP and may be has low oxygen at night which are given her to headaches. We will do a desat and oxygen challenge with the respiratory therapist to see if she qualifies for oxygen. I recommended then that she will follow-up with her primary care physician to schedule a sleep study as well I discussed this with the nurse and the patient and the she agreed denies any chest pain shortness of breath nausea or vomiting while she is walking in the hallways here Gen.: No acute distress, alert, nontoxic Heart: Regular rate and rhythm, no murmurs, clicks, gallops, or rubs Lungs: Clear to auscultation bilaterally, breathing is nonlabored Abdomen/GI: Normal tones on auscultation, soft, nontender, nondistended Musculoskeletal/extremities: No clubbing, cyanosis, or edema Vitals reviewed and are listed below Vital Signs (24 hrs) Temp Pulse Pulse Resp BP Pulse Ox 02/20/18 11:00 99 02/20/18 09:00 97.8 F 75 20 122/75 93 02/20/18 07:48 64 20 02/20/18 07:47 91 02/20/18 04:40 92 02/20/18 04:17 98.0 F 64 20 118/57 92 02/20/18 03:00 60 90 02/20/18 00:27 61 24 106/60 95 02/19/18 23:00 62 92 02/19/18 19:39 97.8 F 67 16 104/51 91 02/19/18 19:00 68 91 02/19/18 17:00 97.8 F 78 20 151/61 98 02/19/18 15:00 69 98 Assessment and Plan: 1. As per discharge assessments above 2. Disposition: Home 3. Condition on discharge, stable and improved. 4. Diet: regular diet 5. Activities: resume normal activities 6. Follow-Up: 1. PCP 2. 7. Medications at the Time of Discharge: Home Medications 3 Medication Instructions Recorded Confirmed Type atorvastatin 40 mg tablet 40 mg PO QDAY #90 tab 01/31/17 02/18/18 Rx carvedilol 3.125 mg tablet 3.125 mg PO BID #180 tab 01/31/17 02/18/18 Rx clopidogrel 75 mg tablet 75 mg PO QDAY #90 tab 01/31/17 02/18/18 Rx pantoprazole 40 mg tablet,delayed 40 mg PO QAM #90 tab 01/31/17 02/18/18 Rx release citalopram 20 mg tablet 20 mg PO QDAY #90 tab 05/20/17 02/18/18 Rx aripiprazole 10 mg tablet 10 mg PO QHS #30 tab 10/09/17 02/18/18 Rx spironolactone 25 mg tablet 12.5 mg PO BID #90 tab 10/09/17 02/18/18 Rx warfarin 5 mg tablet 2.5 mg PO .once weekly #100 tab 10/09/17 02/18/18 Rx warfarin 5 mg tablet 5 mg PO 6XW #100 tab 10/09/17 02/18/18 Rx clonazepam 1 mg tablet 1 mg PO TID #30 tab 10/23/17 02/18/18 Rx lisinopril 20 mg tablet 20 mg PO QDAY #90 tab 12/23/17 02/18/18 Rx venlafaxine ER 150 mg 150 mg PO QDAY #90 cap 01/22/18 02/18/18 Rx capsule,extended release 24 hr Cyanocobalamin (Vitamin B-12) 1,000 mcg PO DAILY tablet.er 02/20/18 Rx [Vitamin B-12] Ferrous Gluconate [Fergon] 324 mg PO BID #30 tab 02/20/18 Rx Folic Acid 1 mg PO DAILY tab 02/20/18 Rx Furosemide 20 mg PO BID #90 tab 02/20/18 Rx 8. Time, care, counseling and coordination of care for this discharge is greater than 30 minutes. Exam - Vitals Vital Signs: Vital Signs Temperature 97.8 F Temperature Source Temporal Artery Scan Pulse Rate [Pulse Oximeter] 75 Pulse Rate [Pulse Oximeter 76 Bilateral Radial] Pulse Rate 60 Respiratory Rate 20 Blood Pressure [Left Arm] 122/75 Blood Pressure 106/62 Pulse Ox 99 Oxygen Flow Rate 3 Oxygen Delivery Method Room Air Height 5 ft 3 in Weight 169 lb 3.2 oz Patient Problems - Patient Problem List (1) CHF (congestive heart failure) Current Visit: No Status: Acute Code(s): I50.9 - Heart failure, unspecified Qualifiers: Qualified Code(s): I50.41 - Acute combined systolic (congestive) and diastolic (congestive) heart failure Category: Medical (2) Essential hypertension Current Visit: No Status: Chronic Code(s): I10 - Essential (primary) hypertension Category: Medical (3) Depression Current Visit: No Status: Chronic Code(s): F32.9 - Major depressive disorder , single episode, unspecified Category: Medical (4) Shortness of breath Current Visit: Yes Status: Acute Code(s): R06.02 - Shortness of breath Category: Medical (5) Anemia Current Visit: Yes Status: Acute Code(s): D64.9 - Anemia, unspecified Category: Medical
[2018-02-20 13:13] VITALS: BP 96/48; RESP 18; O2SAT 88
== END 2018-02-20 14:53 | disposition home or self-care (01) ==
LOC: MED/SURG 12:13 → ER 12:13
PROVIDERS: ADMIT Internal Medicine; ATTEND Internal Medicine